=== PATIENT | female | born 1945 ===

== ENCOUNTER 2018-12-23 12:38 | Outpatient (CLI) | payer OTHER | END 2018-12-23 12:40 | disposition home or self-care (01) | LOC: NUCLEAR 12:38 | DX: M81.0 Age-related osteoporosis without current pathological fracture (principal) ==

== ENCOUNTER 2019-06-30 08:24 | Outpatient (CLI) | payer OTHER | END 2019-06-30 08:30 | disposition home or self-care (01) | LOC: RX STUDY 08:24 | DX: R10.13 Epigastric pain (principal) ==

== ENCOUNTER 2020-08-03 08:51 | Outpatient (CLI) | payer OTHER | END 2020-08-03 09:00 | disposition home or self-care (01) | LOC: NUCLEAR 08:51 | DX: R06.02 Shortness of breath (principal); I10 Essential (primary) hypertension ==

== ENCOUNTER 2020-09-15 08:24 | Outpatient (CLI) | payer OTHER | END 2020-09-15 08:41 | disposition home or self-care (01) | LOC: NUCLEAR 08:24 | DX: I35.0 Nonrheumatic aortic (valve) stenosis (principal) ==

== ENCOUNTER 2021-03-16 13:06 | Outpatient (CLI) | payer OTHER | END 2021-03-16 13:13 | disposition home or self-care (01) | LOC: NUCLEAR 13:06 | PROVIDERS: ATTEND Internal Medicine Rheumatology | DX: M81.0 Age-related osteoporosis without current pathological fracture (principal); M85.88 Other specified disorders of bone density and structure, other site ==

== ENCOUNTER 2022-01-03 08:14 | Outpatient (CLI) | payer OTHER | END 2022-01-03 08:22 | disposition home or self-care (01) | LOC: RX STUDY 08:14 | PROVIDERS: ATTEND Internal Medicine Gastroenterology | DX: R13.0 Aphagia (principal) ==

== ENCOUNTER 2023-06-17 12:55 | Outpatient (CLI) | payer OTHER | END 2023-06-17 12:57 | disposition home or self-care (01) | LOC: NUCLEAR 12:55 | DX: M81.0 Age-related osteoporosis without current pathological fracture (principal) ==